=== PATIENT | male | born 1990 | race Caucasian/White ===

== ENCOUNTER 2024-02-13 21:12 | Emergency (ER) | payer OTHER, SELFPAY ==
--- NOTE | ~2024-02-13 | CT_ITS ---
CT of the Abdomen and Pelvis: Indication: Abdominal pain Technique: 2.5 mm axial scans were obtained through the abdomen and pelvis following intravenous adm inistration of 100 cc of Omnipaque 350. Dose reduction technique was used on this scan by utilizing a utomated exposure control and iterative reconstruction technique. The dose-length product (DLP) was 5 08.80 mGy-cm. Findings: Scans through the lung bases are unremarkable. The liver, pancreas, gallbladder, adrenals and kidneys are within normal limits. Spleen upper limits of normal in size. No evidence of aortic aneurysm. No retroperitoneal lymphadenopathy. No bowel obstruction or bowel wall thickening. There is no evidence to suggest acute appendicitis. Si ngle mildly enlarged lymph node in the right lower quadrant measures 11 mm in short axis (axial image 98). Images through the pelvis were performed. Urinary bladder unremarkable. No pelvic mass seen. No ascit es. Impression: Single minimally enlarged right lower quadrant lymph node, nonspecific. Consider mesenteric adenitis. Spleen is upper limits of normal in size without focal lesion. Reviewed, dictated and finalized at [facility]. Impression: Single minimally enlarged right lower quadrant lymph node, nonspecific. Conside r mesenteric adenitis. Spleen is upper limits of normal in size without focal lesion.
[2024-02-13 21:18] VITALS: BP 134/89; PULSE 112; RESP 20; TEMP 36.7; O2SAT 100
[2024-02-13] MEDS: SODIUM CHLORIDE 0.9% IV 1,000 ML 999 ML IV CONT (22:56)
[2024-02-13 23:26] LABS: Basophils Absolute Auto 0.1 K/mm3 (0.0-0.1); Basophils Percent Auto 0.8 % (0.2-1.2); Eosinophils Absolute Auto 0.1 K/mm3 (0-0.3); Eosinophils Percent Auto 1.6 % (0-4.4); Hematocrit 42.3 % (42.0-52.0); Hemoglobin 14.9 g/dL (14.0-18.0); Immature Granulocyte Absolute 0.02 K/mm3 (0.00-0.031); Immature Granulocyte Percent A 0.3 % (0-0.5); Lymphocytes Absolute Auto 2.17 K/mm3 (0.9-3.2); Lymphocytes Percent Auto 35.6 % (18.3-44.2); Mean Corpuscular HGB Conc 35.2 g/dl (32-36); Mean Corpuscular Hemoglobin 30.3 pg (26-34); Mean Platelet Volume 10.4 fl (7.4-10.4); Monocytes Absolute Auto 0.6 K/mm3 (0.1-0.6); Monocytes Percent Auto 9.5 % (2.6-8.5); Neutrophils Absolute Auto 3.2 K/mm3 (1.3-6.7); Neutrophils Percent Auto 52.2 % (45.5-73.1); Platelet Count Result 206 k/mm3 (150-375); Red Blood Count 4.92 M/mm3 (4.6-6.20); Red Cell Distribution Width 11.9 % (11.5-14.5); White Blood Count 6.1 K/mm3 (4.5-10.0)
--- NOTE | 2024-02-13 23:27 | ED.ABDPAIN ---
HPI - Abdominal Pain General Chief Complaint: Abdominal Pain Stated Complaint: abd pain Time Seen by Provider: 02/13/24 22:47 History of Present Illness HPI narrative: Patient is a 33-year-old male who presents to the emergency department this evening complaining of constipation for the past week and left upper quadrant abdominal pain and left flank pain. Patient denies any similar symptoms in the past, denies any previous history of constipation, denies any new medications or narcotic use, denies any history of similar symptoms in the past and denies any history of kidney stones. Patient admits that his father does have kidney stones but he has never had any. Patient states that throughout the past week he feels as though he can not have a full bowel movement in the stools have been very small and narrow. Patient is currently denying any nausea or vomiting, denies any fevers or chills at home, denies any urinary symptoms including dysuria or hematuria. There are no other modifying, alleviating, or precipitating factors at this time. Related Data Allergies Allergy/AdvReac Type Severity Reaction Status Date / Time No Known Allergies Allergy Verified 02/13/24 22:23 Review of Systems Review of Systems: All systems are reviewed and are negative unless stated otherwise in the HPI. Exam Narrative: General: Alert, awake, afebrile, in no acute distress. HEENT: PERRL, no rhinorrhea, no post nasal drip, oropharynx clear. Neck: Trachea midline, no JVD, no lymphadenopathy. Cardiovascular: Tachycardic with regular rhythm, no murmurs, rubs or gallops, no peripheral edema. Respiratory: Clear to auscultation bilaterally, no tachypnea, no wheezing, no rhonchi, no rubs, no respiratory distress. Abdomen: Soft, no tenderness to palpation over the left upper quadrant, nondistended, no rebound, no guarding, no peritoneal signs. Musculoskeletal: No joint swelling or deformity, normal muscle tone. Skin: No rashes or petechia, no signs of infection. Psychiatric: Alert and oriented, normal behavior and judgment for situation. Neurological: Alert and oriented to person, place, and time. Follows all commands. No focal deficits, speech is clear and fluent. Course Vital Signs Vital signs: Vital Signs Temperature 98.0 F 02/13/24 21:18 Pulse Rate 112 H 02/13/24 21:18 Respiratory Rate 20 02/13/24 21:18 Blood Pressure 134/89 02/13/24 21:18 Pulse Oximetry 100 02/13/24 21:18 Oxygen Delivery Room Air 02/13/24 21:18 Temperature 98.0 F 02/13/24 21:18 Pulse Rate 80 02/14/24 02:55 Respiratory Rate 18 02/14/24 02:55 Blood Pressure 107/68 02/14/24 02:55 Pulse Oximetry 100 02/14/24 02:55 Oxygen Delivery Room Air 02/13/24 21:18 MDM - Abdominal Pain MDM Narrative Medical decision making narrative: The patient was evaluated by myself in the emergency department. History is obtained from patient who is an independent historian and physical exam was performed. External medical records were reviewed at this time. IV was established and pertinent tests were ordered. Patient was administered a 1 L IV fluid bolus with normal saline. Laboratory results obtained revealing no acute process, urinalysis reveals no evidence of urinary tract infection. Imaging studies obtained included CT abdomen and pelvis with IV contrast which was independently interpreted by me revealing splenomegaly at 14 cm otherwise unremarkable, which is pending final radiology interpretation. Differential diagnosis considerations include obstructive uropathy, pyelonephritis, pancreatitis, constipation and gastroenteritis an acute viral syndrome. Comorbidities impacting this visit include none. I have evaluated and discussed social determinants of health with the patient that could potentially impact subsequent diagnosis and treatment plans. On repeat assessment of the patient, reevaluation revealed that the patient is doing well and is
[2024-02-13 23:31] LABS: Alanine Aminotransferase 22 U/L (6-50); Albumin Level 4.4 g/dL (3.5-5.1); Alkaline Phosphatase 53 U/L (38-126); Anion Gap 6 mmol/L (4-12); Aspartate Amino Transferase 29 U/L (17-59); Bilirubin,Total 0.7 mg/dL (0.2-1.3); Blood Urea Nitrogen 18 mg/dL (9-20); Calcium 9.3 mg/dL (8.4-10.2); Carbon Dioxide 28 mmol/L (22-30); Chloride 105 mmol/L (98-107); Estimated CRCL calculation 93 ml/min; Estimated Glomerular Filt Rate > 60; Glucose 101 mg/dL (65-110); Potassium 3.7 mmol/L (3.4-5.0); Sodium 139 mmol/L (137-145)
[2024-02-13 23:36] LABS: Lipase 204 U/L (23-300); Magnesium 2.3 mg/dL (1.6-2.3)
[2024-02-14 00:41] LABS: Appearance Urine Clear (Clear); Bilirubin Urine Negative (Negative); Blood Urine Negative (Negative); Color Urine Yellow (Yellow); Glucose Urine UA Negative (Negative); Ketones Urine 1+ mg/dL (Negative); Leukocyte Esterase Ur Negative LEU/UL (Negative); Nitrate Urine Negative (Negative); Protein Urine Negative (Negative); Urobilinogen Urine 0.2 mg/dL (<2.0); pH Urine 5.5 (5.0-9.0)
[2024-02-14 00:46] LABS: Specific Grav Ur 1.057 (1.001-1.035)
[2024-02-14 00:47] LABS: Add Urine Microscopic? NO
[2024-02-14 02:55] VITALS: BP 107/68; PULSE 80; RESP 18; O2SAT 100
== END 2024-02-14 03:58 | disposition home or self-care (01) ==
PROVIDERS: Emergency Provider Emergency Medicine
DX: R10.12 Left upper quadrant pain (principal); R16.1 Splenomegaly, not elsewhere classified
CPT/HCPCS: 36415; 74177; 80053; 81003; 82248; 83690; 83735; 85025; 96360; 99284; J7030; Q9967

== ENCOUNTER 2025-02-13 14:05 | Outpatient (CLI) | payer OTHER, SELFPAY ==
[2025-02-13 15:20] LABS: Hematocrit 46.3 % (42.0-52.0); Hemoglobin 15.8 g/dL (14.0-18.0); Mean Corpuscular HGB Conc 34.1 g/dl (32-36); Mean Platelet Volume 10.5 fl (7.4-10.4); Platelet Count Result 279 k/mm3 (150-375); Red Blood Count 5.26 M/mm3 (4.6-6.20); Red Cell Distribution Width 12.2 % (11.5-14.5); White Blood Count 9.7 K/mm3 (4.5-10.0)
[2025-02-13 15:53] LABS: Alanine Aminotransferase 23 U/L (6-50); Albumin Level 4.7 g/dL (3.5-5.1); Alkaline Phosphatase 45 U/L (38-126); Amylase 113 U/L (30-110); Anion Gap 9 mmol/L (4-12); Aspartate Amino Transferase 25 U/L (17-59); Bilirubin,Total 0.7 mg/dL (0.2-1.3); Blood Urea Nitrogen 20 mg/dL (9-20); Calcium 9.5 mg/dL (8.4-10.2); Carbon Dioxide 29 mmol/L (22-30); Chloride 101 mmol/L (98-107); Estimated Glomerular Filt Rate > 60; Glucose 87 mg/dL (65-110); Lipase 356 U/L (23-300); Sodium 139 mmol/L (137-145)
== END 2025-02-13 14:06 | disposition home or self-care (01) ==
LOC: ANHLAB 14:06
PROVIDERS: Visit Provider Nurse Practitioner Family
DX: R10.12 Left upper quadrant pain (principal)
CPT/HCPCS: 36415; 80053; 82150; 83690; 85027

== ENCOUNTER 2025-03-11 08:35 | Outpatient (CLI) | payer OTHER, SELFPAY ==
--- NOTE | ~2025-03-11 | US_ITS ---
US abdomen complete EXAMINATION: US Abdomen Complete INDICATION: Left upper quadrant pain PROCEDURE: Realtime High Resolution abdomen ultrasound. COMPARISON: CT dated 02/14/2024 FINDINGS: Gallbladder within normal limits. No gallstones, pericholecystic fluid, gallbladder wall t hickening or biliary dilatation. Common bile duct measures 3.5 mm. Liver echotexture within normal limits without focal mass. Pancreas within normal limits. Pancreati c tail is obscured by bowel gas. Spleen size is upper normal measuring 12.9 cm. Renal echotexture is within normal limits bilaterally without hydronephrosis, contour deforming mass or renal stone. Righ t kidney measures 10.2 cm. Left kidney measures 10.1 cm. Visualized aspects of the aorta and IVC are within normal limits. Portal vein is patent. No sonograph ic Pollard's sign indicated by the technologist. IMPRESSION: 1: Normal abdominal ultrasound. Reviewed, dictated and finalized at location A.
== END 2025-03-11 08:36 | disposition home or self-care (01) ==
PROVIDERS: Visit Provider Nurse Practitioner Family
DX: R10.12 Left upper quadrant pain (principal)
CPT/HCPCS: 76700